=== PATIENT | male | born 1990 | race Caucasian/White ===

== ENCOUNTER 2023-07-04 00:51 | Emergency (ER) | payer BC, SELFPAY ==
[2023-07-04 00:52] VITALS: BP 122/64; PULSE 79; RESP 16; TEMP 36.4; O2SAT 99; BMI 24.0
--- NOTE | 2023-07-04 00:56 | EX.ED.DYSGE1 ---
HPI History of Present Illness Chief Complaint: Dizziness [facility] Medical History (Updated 07/04/23 @ 00:55 by Anai Ramos) Acid reflux Mononucleosis Home Medications NK 07/04/23 [History Last Taken Unknown] Allergy/AdvReac Type Severity Reaction Status Date / Time No Known Allergies Allergy Verified 07/04/23 00:56 Social History Smoking Status: Never smoker EXAM Physical Exam Const Vital Signs: 07/04/23 00:52 07/04/23 00:56 Temperature 97.6 F L Temperature Source Oral Pulse Rate 79 Respiratory Rate 16 Respiratory Effort Normal Respiratory Pattern Normal Blood Pressure 122/64 H Blood Pressure Mean 83 Pulse Ox 99 Oxygen Delivery Method Room Air MDM MDM MDM Narrative Medical decision making narrative: HISTORY OF PRESENT ILLNESS: 32-year-old male. Reports dizziness tonight after having a few drinks . States he is lost 25 pounds one year ago after getting mono. States he has not been able to regain weight. He states after drinking tonight he became lightheaded, noted room spinning. Symptoms are exacerbated by standing. Improved by rest. Denies any chest pain, palpitations. Denies any bleeding diathesis. Notes increased urination yesterday but denies any dysuria or hematuria. Denies any family history of early cardiac . Denies any focal numbness weakness or loss of sensation. No headache. REVIEW OF SYSTEMS: Pertinent positives: Dizziness, lightheadedness upon standing, notes increased urination yesterday Pertinent negatives: Headache, chest pain, fever, vomiting, diarrhea PHYSICAL EXAM: Nursing triage notes reviewed, Vital signs reviewed Constitutional: please see mdm HENT: MMM Eyes: Pupils equal round and reactive to light, Extraocular muscles intact Neck: No stridor, no JVD, full neck ROM Lungs: Clear to auscultation, No wheezing or rales. No increased work of breathing, no conversational dyspnea, no accessory muscle use, no nasal flaring. No respiratory distress noted Heart: Regular rate and rhythm, No murmurs, No rubs and No gallops, 2+ distal pulses (radial, femoral, posterior tibial) in all extremities Abdomen: Soft, there is no tenderness, rigidity, rebound or guarding, no obvious peritoneal signs, no palpable pulsatile abdominal masses, no auscultated abdominal bruit : No CVAT Extremities: No edema Neuro: Alert and oriented x3, neuro exam at baseline, cranial nerves II through XII are intact. No pain with extraocular muscle movement. There is negative test of skew. 5 of 5 strength in upper and lower extremities in flexion extension. Intact sensation to light touch in upper and lower extremity dermatomes. No truncal or extremity ataxia. No dysdiadochokinesia. Normal gait. 2+ reflexes in upper and lower extremities. No meningeal signs. Negative Babinski. NIH of 0. Skin: No rash or lesions noted MEDICAL DECISION MAKING: Chief Complaint: Dizziness External records reviewed: No recent advanced imaging Factors affecting care: Acid reflux, mononucleosis MDM Narrative: Patient was hemodynamically stable, afebrile and nontoxic-appearing. Exam without focal neurologic deficits. No ataxia. No focal cardiopulmonary abnormalities. Patient's presentation likely secondary to being intoxicated with subsequent dehydration. Pt noted he drank ~7 beers. No clinical evidence to suggest CVA, electrolyte disturbance, arrhythmia, ICH, mass, myocardial ischemia etc. Patient was encouraged to take in plenty of p.o. fluid and refrain from drinking alcohol. I considered the following differential diagnosis: ICH, brain mass, dehydration, electrolyte disturbance, ACS, arrhythmia, anemia, electrolyte abnormality, alcohol intoxication, drug intoxication. ALL IMAGES (IF OBTAINED) HAVE BEEN PERSONALLY REVIEWED AND INTERPRETED BY MYSELF. EKG with normal sinus rhythm, normal axis, normal intervals, no STEMI CBC without leukocytosis, severe anemia, no thrombocytopenia. BMP without evidence of significant electrolyte abnormalities, no anion gap, no acute kidney injury. LFTs show no evidence of hepatobiliary pathology. High-sensitivity troponin is negative, no evidence of myocardial ischemia Urine tox screen negative Serum alcohol consistent with acute alcohol intoxication CT scan of the head was negative I ordered a chest x-ray however patient refused the study The synthesis of the patient history, physical exam, labs images suggest likely alcohol intoxication accompanied dehydration from alcohol induced diuresis. Encourage patient to refrain from drinking heavily. There is no sign of posterior circulation stroke at this time. Encouraged outpatient follow-up to further workup weight loss. I completed a structured, evidence-based clinical evaluation to screen for acute stroke and neurologic deficits in this patient. The patient has a normal detailed neurologic exam, which is highly sensitive for dangerous causes of dizziness, vertigo, or loss of balance. The evidence indicates that the patient is very low risk for an acute neurologic emergency and this is consistent with my clinical intuition. The risk of further workup or hospitalization is likely higher than the risk of the patient having a stroke or other dangerous neurologic condition. It is, therefore, in the patient?s best interest not to do additional emergent testing or to be hospitalized at this time. Shared Decision-Making I have discussed with the patient my clinical impression and the result of an evidence-based clinical evaluation to screen for stroke, as well as the risk of further testing and hospitalization. The evidence shows that the risk for stroke is less than 1%. Although the risk of stroke has not been completely eliminated, the risks of further testing or hospitalization likely exceed any potential benefit, and the patient agrees with not pursuing further emergent evaluation or hospitalization for stroke evaluation at this time. Total critical care time today provided was at least 0 minutes. This excludes separately billable procedures. Critical care time (if documented) is secondary to the patient having high probability of clinically significant/life threatening deterioration in the patient's condition which required my urgent intervention. Impression: 1. Alcohol intoxication 2. Lightheadedness 3. Dizziness Dispo: Discharge This note was generated with [employer] dictation software. It may contain incorrect words, spelling, and punctuation that were not noted in review of the chart prior to signing. Lab Data Attestation: I reviewed the patient's lab results. Labs: Laboratory Results - last 24 hr 07/04/23 07/04/23 01:37 01:49 WBC 5.8 RBC 4.86 Hgb 14.6 Hct 43.9 MCV 90.3 MCH 30.0 MCHC 33.3 RDW Std Deviation 41.6 RDW Coeff of Yamil 12.7 Plt Count 201 MPV 10.3 Immature Gran % (Auto) 0.300 Neut % (Auto) 55.0 Lymph % (Auto) 33.2 Louisa % (Auto) 10.0 Eos % (Auto) 1.0 Baso % (Auto) 0.5 Absolute Neuts (auto) 3.2 Absolute Lymphs (auto) 1.92 Nucleated RBC % 0 Sodium 143 Potassium 3.7 Chloride 108 H Carbon Dioxide 27.0 Anion Gap 8 BUN 16 Creatinine 1.04 Estim Creat Clear Calc 97.10 Est GFR (MDRD) Af Amer 107 Est GFR (MDRD) Non-Af 89 BUN/Creatinine Ratio 15.4 Glucose 106 Calcium 8.6 Total Bilirubin 0.50 Direct Bilirubin 0.13 AST 15 ALT 18 Alkaline Phosphatase 82 Troponin I High Sens 5 Total Protein 7.3 Albumin 4.1 Globulin 3.2 Lipase 27 Urine Opiates Screen NEGATIVE Urine Methadone Screen NEGATIVE Ur Barbiturates Screen NEGATIVE Ur Phencyclidine Scrn NEGATIVE Ur Amphetamines Screen NEGATIVE MDMA (Ecstasy) Screen NEGATIVE U Benzodiazepines Scrn NEGATIVE Urine Cocaine Screen NEGATIVE U Cannabinoids Screen NEGATIVE Ur Drug Screen Comment Ethyl Alcohol 174.0 Radiography Diagnostic Testing: Clinical Impression(s) from Imaging Studies Brain CT 07/04/23 01:23 IMPRESSION: No evidence of acute intracranial abnormality. Electronically Signed: Eric Blue MD at 3:44 EDT , Discharge Plan Triage Chief Complaint: Dizziness ED Provider: Richard Cruz Dx/Rx/DC Orders Instructions: ED Dizziness, Uncertain Cause, ED Alcohol Intoxication Prescriptions: No Action NK Primary Care Provider: Wong Cortes Referrals: Wong Teresa MD [Non-Staff] - Activity Restrictions/Additional Instructions: Thank you for trusting us with your care today! No clear life-limiting etiology could be ascertained based on your workup today. I recommend you refrain from drinking alcohol heavily. Recommend taking more p.o. fluids. Please take Tylenol (2 pills, 650 mg), ibuprofen (2 pills, 400 mg) every 6 hours as needed for pain and fever control. Please return to the emergency department if your symptoms change or worsen. Please follow with your primary care physician for further outpatient evaluation and management. Disposition Disposition: Home, Self Care Discharge Date/Time: 07/04/23 04:17
--- NOTE | 2023-07-04 01:23 | CT_ITS ---
INDICATION: dizziness EXAMINATION: CT Head or Brain W/O Contrast Injection TECHNIQUE: Multiple axial images were obtained of the head without intravenous contrast. A radiation dose optimization technique was used for this scan. IV Contrast dosage and agent: None. COMPARISON: None FINDINGS: BRAIN PARENCHYMA: No intra- or extra-axial hemorrhage. No evidence of acute major territorial infarct. No intracranial mass or mass effect. There is preservation of the joyce/white matter interface. Posterior fossa structures are unremarkable. CSF SPACES: Appropriate for age. No hydrocephalus. Basal cisterns are patent. CALVARIUM, SKULL BASE, PARANASAL SINUSES AND MASTOID AIR CELLS: Calvarium is intact. No acute findings within imaged paranasal sinuses. Mastoid air cells are well-pneumatized. ORBITS: Unremarkable. CT/Brain/Head without Contrast IMPRESSION: No evidence of acute intracranial abnormality. Electronically Signed: Eric Blue MD at 3:44 EDT ,
--- NOTE | 2023-07-04 01:24 | EKG12_ITS ---
Test Reason : DYSRHYTHMIA Blood Pressure : / mmHG Vent. Rate : 079 BPM Atrial Rate : 079 BPM P-R Int : 146 ms QRS Dur : 094 ms QT Int : 346 ms P-R-T Axes : 085 084 059 degrees QTc Int : 396 ms Normal sinus rhythm Normal ECG Confirmed by Ervin Ontiveros ([id number]), market editor JACKELINE RENEE ([id number]) on 07/06/2023 8:16:18 AM Referred By: Confirmed By:Ervin Ontiveros
--- OUTSIDE RECORDS SUMMARY | 2023-07-04 01:26 | XMS RPT_ITS | CCD ---
Author Name Unknown Address [address] [place] [id number] Organization [facility] Care Team Providers Care Catalytic Case Operator Name Role Phone MORAIMA, FABY Primary Care Unavailable CLARI, ANDIE ROGERS Referring Unavail able CLARI, ANDIE ROGERS Attending Unavail able VACCARIELLO, JESSIE Markham Primary Care Unavailable CLARI, ANDIE ROGERS Attending Unavail able CLARI, ANDIE ROGERS Attending Unavail able VACCARIELLO, FABY Primary Care Unavailable Problems Problem Classification Problem Date Documented Date Episodic/Chronic Administrative/social admission (2 sources) Encounter for administrative examinations, unspecified; Translations: [Encounter for administrative examinations, unspecified] Onset: 03-26-2022 Episodic Results Test Name Value Interpretation Reference Range Facil ity Encounters Encounter Date Encounter Type Care Provider Facility Start: 03-01-2023 End: [facility]: 03-01-2023 End: 03-01-2023 Encounter for general adult medical examination without abnormal findings [facility] Start: 03-26-2022 End: 03-26-2022 ambulatory [facility] Start: 03-26-2022 End: 03-27-20[facility] Start: 03-26-2022 End: 03-27-2022 Encounter for general adult medical examination without abnormal findings [facility] Summary Purpose Family History No Family History Records FoundNo Family History Records FoundNo Family History Records Found Advance Directives No Advanced Directives Records FoundNo Advanced Directives Records FoundNo Advanced Directives Records Found Additional Source Comments (unrecognized sect ion and content) No Status Records FoundNo Status Records FoundNo Status Records Found INFORMATION SOURCE (unrecogn ized section and content) DATE CREATED AUTHOR AUTHOR'S ORGANIZ ATION 03/28/2022 [facility] DATE CREATED AUTHOR AUTHOR'S ORGANIZ ATION 03/01/2023 [facility] FOR RECORDS PERTAINING TO PATIENTS WHO ARE OR HAVE BEEN ENROLLED IN A CHEMICAL DEPENDENCY/SUBSTANCEABUSE PROGRAM, SOME INFORMATION MAY BE OMITTED. This clinical summary was aggregated from multiple sources. Caution should be exercised in using it in the provision of clinical care. This summary normalizes information from multiple sources, and as a consequence, information in this document may materially change the coding, format and clinical context of patient data. In addition, data may be omitted in some cases. CLINICAL DECISIONS SHOULD BE BASED ON THE PRIMARY CLINICAL RECORDS. [employer] [facility]. provides no warranty or guarantee of the accuracy or completeness of information in this document.
[2023-07-04] MEDS: 0.9% Normal Saline (1000mL) 1,000 ML 999 ML IV (01:40)
[2023-07-04 01:41] LABS: Absolute Lymphocyte Count 1.92 X10^3/uL (0.83-4.51); Absolute Neutrophil Count 3.2 X10^3/uL (2.0-7.7); Basophil# 0.03 X10^3/uL; Basophil% 0.5 % (0-1); Eosinophil# 0.06 X10^3/uL; Hematocrit 43.9 % (40-54); Hemoglobin 14.6 g/dL (13.0-16.5); Lymphocyte # 1.92 X10^3/ul (0.83-4.51); Lymphocyte % 33.2 % (19-41); Mean Corp Hgb Conc 33.3 g/dL (32-36); Mean Corpuscular Volume 90.3 fL (80-94); Mean Platelet Vol. 10.3 fl (6.2-12.0); Monocyte# 0.58 X10^3/uL; NRBC Flagged by Analyzer 0 % (0-5); Neutrophil # 3.17 X10^3/uL (2.7-7.7); Platelet Count 201 K/mm3 (150-450); RBC Distribution Width CV 12.7 % (11.6-14.6); RBC Distribution Width SD 41.6 fl (35.1-43.9); Red Blood Count 4.86 M/mm3 (4.6-6.2); White Blood Count 5.8 K/mm3 (4.4-11.0)
--- NOTE | 2023-07-04 01:45 | NURSING ---
Pt refusing CXR and CT and Monitor. Pt states he only came in for lab work. He does not need or want the CXR and CT.
[2023-07-04 03:13] LABS: Amphetamine Urine VISTA NEGATIVE (<1000 ng/mL); Barbiturate Urine VISTA NEGATIVE (< 200 ng/mL); Benzodiazepine Urine VISTA NEGATIVE (< 200 ng/mL); Cocaine Urine VISTA NEGATIVE (< 300 ng/mL); Ecstacy Urine VISTA NEGATIVE (< 500 ng/mL); Methadone Urine VISTA NEGATIVE (< 300 ng/mL); PCP Urine VISTA NEGATIVE (< 25 ng/mL); THC Urine VISTA NEGATIVE (< 50 ng/mL); Vista UDS pH Range 5
[2023-07-04 03:16] LABS: AST(SGOT) 15 U/L (15-37); Alanine Aminotransfer ALT/SGPT 18 U/L (16-61); Albumin, Serum 4.1 g/dL (3.2-5.0); Alkaline Phosphatase 82 U/L (45-117); Anion Gap 8 (5-15); BUN 16 mg/dL (7-18); BUN/Creat Ratio 15.4 RATIO (10-20); Bilirubin, Direct 0.13 mg/dL (0.00-0.30); Calcium,Total 8.6 mg/dL (8.5-10.1); Chloride 108 mmol/L (98-107); Creatinine, Serum 1.04 mg/dL (0.70-1.30); EST Glomerular Filtration Rate 89 mL/min (>60); Est Glom Filt Rate - Afr Amer 107 mL/min (>60); Globulin 3.2 g/dL (2.2-4.2); Glucose 106 mg/dL (74-106); Lipase 27 U/L (13-75); Potassium 3.7 mmol/L (3.5-5.1); Protein, Total 7.3 g/dL (6.4-8.2); Sodium Level 143 mmol/L (136-145); Troponin-I HS 5 pg/mL (3.0-78.0)
[2023-07-04 03:51] VITALS: BP 124/62; PULSE 79; RESP 18; O2SAT 97
[2023-07-04 04:16] VITALS: BP 104/62; PULSE 76; RESP 16; TEMP 36.6; O2SAT 99
== END 2023-07-04 04:17 | disposition home or self-care (01) ==
PROVIDERS: Emergency Provider Emergency Medicine; PCP Family Medicine; Visit Provider Emergency Medicine
DX: R42 Dizziness and giddiness (principal); F10.129 Alcohol abuse with intoxication, unspecified; K21.9 Gastro-esophageal reflux disease without esophagitis
CPT/HCPCS: 70450; 80048; 80076; 80307; 80320; 83690; 84484; 85025; 93005; 96360; 99284; J7030; A4216; G0480